=== PATIENT | female | born 1995 | race Caucasian/White ===

== ENCOUNTER 2016-06-29 02:49 | Emergency (ER) | payer SELFPAY ==
[2016-06-29] MEDS ORDERED: NORMAL SALINE 1000 ML 1,000 ML IV ONE (03:28)
--- NOTE | 2016-06-29 03:45 | ER Document Report ---
ED General - General Chief Complaint: Possible Overdose Stated Complaint: POSSIBLE OVERDOSE Information source: Patient Notes: This is a 20-year-old female is brought to the ER after a possible overdose. EMS states that they were called by [employer] who had been called out because patient was shoplifting. However patient was noted to take acid and loperamide and was acting altered and so EMS was notified. Patient states that she has had alcohol, LSD, loperamide and Dramamine tonight. She also states that she is having thoughts of suicide and no longer wants to be alive because she is "a bad person". She tells me that she has a plan to either hang herself or shoot herself. TRAVEL OUTSIDE OF THE [place] IN LAST 30 DAYS: No - Related Data Allergies/Adverse Reactions: No Known Allergies Allergy (Verified 01/22/16 18:55) Past Medical History - General Information source: Patient, [facility] Records - Social History Smoking Status: Current Every Day Smoker Drug Abuse: Other Family History: Reviewed & Not Pertinent Patient has suicidal ideation: Yes Patient has homicidal ideation: No Renal/ Medical History: Denies: Hx Peritoneal Dialysis Past Surgical History: Reports: Hx Adenoidectomy, Hx Tonsillectomy - Immunizations Immunizations up to date: Yes Hx Diphtheria, Pertussis, Tetanus Vaccination: Yes Review of Systems - Review of Systems -: Yes ROS unobtainable due to patient's medical condition Physical Exam - Vital signs Vitals: Temp Pulse Resp BP Pulse Ox 98.8 F 116 H 18 144/82 H 99 06/29/16 03:16 06/29/16 03:16 06/29/16 03:16 06/29/16 03:16 06/29/16 03:16 - Notes Notes: PHYSICAL EXAMINATION: GENERAL: Well-nourished, conversant, anxious. Not ill appearing HEAD: Atraumatic, normocephalic. EYES: Pupils widely dilated but reactive bilaterally, extraocular movements intact, sclera anicteric, conjunctiva are normal. ENT: nares patent, oropharynx clear without exudates. Moist mucous membranes. NECK: Normal range of motion, supple without lymphadenopathy LUNGS: Breath sounds clear to auscultation bilaterally and equal. No wheezes rales or rhonchi. HEART: Tachycardic rate and regular rhythm without murmurs ABDOMEN: Soft, nontender, normoactive bowel sounds. No guarding, no rebound. No masses appreciated. EXTREMITIES: Normal range of motion. NEUROLOGICAL: Alert and oriented to person and place and year. Cranial nerves grossly intact. Normal speech. Moves all 4 spontaneously and on command. PSYCH: Somewhat agitated and anxious, cooperative SKIN: Warm, Dry, normal turgor, no rashes or lesions noted. Course - Re-evaluation Re-evalutation: 06/29/16 06:39 Secondary to patient's admission of suicidal ideation with plan to hang herself or shoot herself, IVC paper work has been completed as I do not feel that she is safe for discharge from the ER. She will be evaluated later today by the psychiatry service here. - Vital Signs Vital signs: Temp Pulse Resp BP Pulse Ox 98.7 F 120 H 18 145/87 H 98 06/29/16 04:15 06/29/16 04:15 06/29/16 04:15 06/29/16 04:15 06/29/16 04:15 - Laboratory Result Diagrams: 06/29/16 04:39 06/29/16 04:39 Laboratory results interpreted by me: 06/29/16 06/29/16 04:39 04:39 Seg Neutrophils % 85.3 H Lymphocytes % 8.7 L Potassium 3.5 L Carbon Dioxide 21 L Creatinine 0.50 L Salicylates < 1.0 L Acetaminophen < 10 L - EKG Interpretation by Me Additional EKG results interpreted by me: 06/29/16 06:41 EKG at 0445 demonstrate sinus tachycardia with a rate of 111. There are no ST segment elevations or depressions. QRS and QTC intervals are within normal limits. Discharge - Discharge Clinical Impression: Substance abuse, Suicidal ideation Condition: Stable Disposition: PSYCH HOSP/UNIT
[2016-06-29 05:07] LABS: APPEARANCE,URINE CLEAR; BILIRUBIN,URINE NEGATIVE (NEGATIVE); GLUCOSE, URINE NEGATIVE (NEGATIVE); KETONES,URINE NEGATIVE (NEGATIVE); LEUKOCYTE ESTERASE,URINE NEGATIVE (NEGATIVE); NITRITE,URINE NEGATIVE (NEGATIVE); PROTEIN,URINE NEGATIVE (NEGATIVE); URINE SPECIFIC GRAVITY 1.002; UROBILINOGEN,URINE NEGATIVE mg/dL (<2.0)
[2016-06-29 05:22] LABS: PARTIAL THROMBOPLASTIN TIME 26.9 SEC (23.5-35.8); PROTHROMBIN TIME 12.3 SEC (11.4-15.4)
[2016-06-29 05:32] LABS: URINE BARBITURATES SCREEN NEGATIVE; URINE METHADONE SCREEN NEGATIVE; URINE OPIATES LOW NEGATIVE; URINE PHENCYCLIDINE SCREEN NEGATIVE
[2016-06-29 05:34] LABS: ALANINE AMINOTRANSFERASE 29 U/L (9-52); ALBUMIN 4.5 g/dL (3.5-5.0); ALCOHOL 22 mg/dL (NONE DETECTED); ALKALINE PHOSPHATASE 61 U/L (38-126); ANION GAP 17 (5-19); ASPARTATE AMINO TRANSFERASE 30 U/L (14-36); BILIRUBIN,DIRECT 0.3 mg/dL (0.0-0.4); BILIRUBIN,TOTAL 0.7 mg/dL (0.2-1.3); BLOOD UREA NITROGEN 7 mg/dL (7-20); CALCIUM 9.3 mg/dL (8.4-10.2); CARBON DIOXIDE 21 mmol/L (22-30); CHLORIDE 105 mmol/L (98-107); GLUCOSE 85 mg/dL (75-110); POTASSIUM 3.5 mmol/L (3.6-5.0); SODIUM 142.5 mmol/L (137-145); TOTAL PROTEIN 7.3 g/dL (6.3-8.2)
[2016-06-29 06:00] LABS: ABSOLUTE LYMPHOCYTES (AUTO) 0.6 10^3/uL (0.5-4.7); ABSOLUTE MONOCYTES (AUTO) 0.4 10^3/uL (0.1-1.4); ABSOLUTE NEUT (AUTO) 5.4 10^3/uL (1.7-8.2); BASOPHILS % (AUTO) 0.2 % (0-2); HEMATOCRIT 40.4 % (36.0-47.0); HGB HCT DIFFERENCE 1.6; LYMPHOCYTES % (AUTO) 8.7 % (13-45); MEAN CORPUSCULAR HEMOGLOBIN 30.6 pg (27.0-33.4); MEAN CORPUSCULAR HGB CONC 34.6 g/dL (32.0-36.0); MEAN CORPUSCULAR VOLUME 89 fl (80-97); MONOCYTES % (AUTO) 5.8 % (3-13); RED BLOOD COUNT 4.56 10^6/uL (3.72-5.28); RED CELL DISTRIBUTION WIDTH 13.2 % (11.5-14.0); SEGMENTED NEUTROPHILS % (AUTO) 85.3 % (42-78); WHITE BLOOD COUNT 6.3 10^3/uL (4.0-10.5)
--- NOTE | 2016-06-29 10:23 | PSYCHOLOGICAL NOTE ---
Psych Note - Psych Note Psych Note: Patient is a 20 year old female who presents via EMS after [employer] was called due to her allegedly shoplifting. Patient was reportedly observed to be acting strangely, and she later endorsed ETOH, LSD, Loperamine, and Dramamine. Patient reportedly also stated that she was suicidal because she is a "bad person." Patient was held for psychiatric evaluation and this morning states everything from last night was really a blur and she cannot remember really what happened. Patient states she is not concerned for the events of last night and states it is atypical for her to take acid and shop lift. Patient states she has no idea why she would have stated she was suicidal. 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 Patient states she has felt suicidal in the past, around the age of 15 at which time she took sleeping pills which resulted in her going to a treatment center in [place]. Patient does states she is followed by [facility], and is prescribed Prozac 40 mg qd [id number], and Xanax, which she states she rarely takes. Patient denies suicidal ideations. Patient provided verbal consent to contact her live-in boyfriend. Patient's boyfriend, Ki states he does not have concerns that the patient was attempted to harm herself, just that she started talking nonsense and ran out of the door. He states he is not concerned that the patient would attempt to harm herself and states it was "completely random" that she would do drugs like that. Patient is A&O. Mood is euthymic with smiling affect. Patient denies suicidal/ homicidal ideations, intent, plan, or means. Patient denies A/V H; delusions not noted. Thought processes were guarded. Conversational speech was WNL for rate, tone, and prosody. Intellectual abilities were estimated within average range. Attention and focus were poor. Insight, judgment, and impulse control were poor. Polysubstance abuse Unspecified Depressive Disorder Patient is psychiatrically cleared and recommended for rescind IVC and discharge. Patient reports no concerns at this time and reports her only concern is that she is "so tired from being here since 3 am." Patient denies SI , and states she has a provider who provides her Prozac and Xanax, which she states she rarely takes. Patient's boyfriend, with whom she lives, reported no concerns and is in agreement with plan of care. I consulted with Dr. King in regards to the care and management of this patient.
--- NOTE | 2016-06-29 12:51 | ER Document Report ---
Doctor's Note Notes: 06/29/16 12:50 Rounds: Chart reviewed and patient interviewed. Patient longer expresses suicidal thoughts. Probably related to her alcohol intake. Vital signs are all essentially normal except for a very low-grade hypertension. Lab studies are all essentially unremarkable, as well. Patient appears to be medically stable for discharge or transfer. Mental health has assessed the patient feels that she is able to be discharged him from having outpatient follow-up. Tamiko Mackay M.D.
[2016-06-29 13:12] VITALS: BP 145/90
--- NOTE | 2016-06-29 16:02 | EKG REPORT ---
SEVERITY:- OTHERWISE NORMAL ECG - SINUS TACHYCARDIA : Confirmed by: Miroslava Law 29-Jun-2016 16:01:33
== END 2016-06-29 10:45 ==
LOC: ER 02:49
DX: R45.851 Suicidal ideations (principal); F19.10 Other psychoactive substance abuse, uncomplicated; F32.9 Major depressive disorder, single episode, unspecified; F17.200 Nicotine dependence, unspecified, uncomplicated
CPT/HCPCS: 93005; 99285; 96360; 36415; 80307 ×4; 85025; 85610; 85730; 81025; 80053; 81001; 71010; 93010; J7030